=== PATIENT | male | born 1960 | race African-American/Black ===

== ENCOUNTER 2017-06-02 12:13 | Emergency (ER) | payer BC ==
[2017-06-02] MEDS ORDERED: Amoxicillin/Potassium Clav 875 MG TAB ONE (13:16)
[2017-06-02] MEDS ORDERED: Bacitracin Zinc 1 Packet ONE (13:16)
[2017-06-02] MEDS ORDERED: Lidocaine 1% PF 5 ML VIAL ONE (13:16)
[2017-06-02] MEDS ORDERED: Adacel (T-DAP) 0.5 ML VIAL ONE (13:16)
--- NOTE | 2017-06-02 13:56 | CT ---
NONCONTRAST HEAD CT: History: Patient working and had a seizure. Patient fell to the ground. Bleeding from the tip of the nose. Nasal swelling. Comparison: None. Technique: Noncontrast head CT is performed from skull base to skull vertex. FINDINGS: No parenchymal hemorrhage. No extraaxial hematoma. No midline shift. Basilar cisterns are patent. Bra in volume is age appropriate. Cortical macario white matter differentiation is preserved. Ventricles and sulci are patent and symmetric. There is adequate aeration of the mastoid air cells. Mild mucosal th ickening of the ethmoid air cells. Calvarium is intact. IMPRESSION: No intracranial post-traumatic sequellae. POS: [facility]
[2017-06-02 14:03] LABS: #Eosinphils 0.2 thou/uL (0.0-0.7); #Lymphocytes 1.8 thou/uL (1.20-3.40); #Monocytes 0.8 thou/uL (0.11-0.59); #Neutrophils 6.8 thou/uL (1.40-6.50); %Basophils 0.4 % (0.0-1.0); %Eosinophils 2.3 % (0.0-10.0); %Lymphocytes 18.4 % (21.0-51.0); %Monocytes 8.1 % (0.0-10.0); %Neutrophils 70.8 % (42.0-75.0); Hemoglobin 15.4 g/dL (14.0-18.0); Mean Corpuscular HGB CONC 33.2 g/dL (32.0-36.0); Mean Corpuscular Hemoglobin 31.2 pg (27.0-31.0); Mean Corpuscular Volume 94.1 fl (80.0-94.0); Mean Platelet Volume 6.6 fL (7.4-10.4); Platelet Count 309 thou/uL (130-400); RBC Distribution Width 11.9 % (11.5-14.5); Red Blood Cell (RBC) Count 4.95 mill/uL (4.70-6.10); White Blood Cell (WBC) Count 9.6 thou/uL (4.8-10.8)
--- NOTE | 2017-06-02 14:08 | CT ---
CERVICAL SPINE CT WITHOUT CONTRAST: HISTORY: Trauma. Posttraumatic pain. Seizure. COMPARISON: None. TECHNIQUE: Postcontrast cervical spine CT is performed in the axial plane. Reformatted images are submitted for interpretation. FINDINGS: The visualized soft tissue neck structures are unremarkable. There is effacement of the left pirifor m sinus which may be due to benign acquisition of mucosa. Direct visualization is recommended to exc lude other etiologies. Upper mediastinum and lung apices demonstrate chronic change. The central spinal canal and neural foramina are patent. Evaluation is limited by technique. Lateral masses of C1 and C2 articulate appropriately. There is appropriate articulation of the facet s. Odontoid process is intact. On the lateral projection, there is partial fusion of the C5-C6 leve l. The posterior elements are also partially fused. Findings may be due to lack of complete pigment ation. Vertebral body height is maintained. There are no fractures. IMPRESSION: 1. No cervical spine fracture. 2. Lack of complete segmentation of C5-C6. 3. Effacement of the left piriform sinus. Evaluate for possible mucosal-based pathology with noneme rgent direct visualization. POS: [facility]
[2017-06-02 14:26] LABS: ALT (SGPT) 19 U/L (8-55); AST (SGOT) 25 U/L (5-34); Albumin 4.3 g/dL (3.5-5.0); Alkaline Phosphatase 60 U/L (40-150); Anion Gap 13 mmol/L (10-20); BUN (Urea Nitrogen) 9 mg/dL (8.4-25.7); Bilirubin, Total 0.5 mg/dL (0.2-1.2); Calc. Creatinine Clearance 0 mL/min (70-130); Calcium 9.5 mg/dL (7.8-10.44); Carbon Dioxide 26 mmol/L (22-29); Chloride 102 mmol/L (98-107); Estimated GFR-MDRD Greater than 90; Globulin 3.2 g/dL (2.4-3.5); Glucose 97 mg/dL (70-105); Protein, Total 7.5 g/dL (6.0-8.3); Sodium 137 mmol/L (136-145)
[2017-06-02 15:10] LABS: Carbamazepine-Tegretol Less than 1.9 ug/mL (4.0-12.0)
== END 2017-06-02 16:30 | disposition home or self-care (01) ==
LOC: ERS 12:13
DX: G40.909 Epilepsy, unspecified, not intractable, without status epilepticus (principal); F17.210 Nicotine dependence, cigarettes, uncomplicated
CPT/HCPCS: 12011; 36415; 70450; 72125; 80053; 80156; 85025; 90471; 90715; 96360; 99406; J2001

== ENCOUNTER 2019-04-18 10:47 | Inpatient (IN) | payer BC ==
[2019-04-18] MEDS ORDERED: Iopamidol-370 76% 500 ML 1 ML ONE (10:55)
[2019-04-18 12:20] LABS: #Eosinphils 0.3 thou/uL (0.0-0.7); #Lymphocytes 2.1 thou/uL (1.20-3.40); #Monocytes 1.2 thou/uL (0.11-0.59); #Neutrophils 4.3 thou/uL (1.40-6.50); %Basophils 0.3 % (0.0-1.0); %Eosinophils 3.8 % (0.0-10.0); %Lymphocytes 26.3 % (21.0-51.0); %Monocytes 14.9 % (0.0-10.0); %Neutrophils 54.7 % (42.0-75.0); Hemoglobin 14.1 g/dL (14.0-18.0); Mean Corpuscular HGB CONC 30.9 g/dL (32.0-36.0); Mean Corpuscular Hemoglobin 28.1 pg (27.0-31.0); Mean Corpuscular Volume 90.9 fL (78.0-98.0); Mean Platelet Volume 7.1 fL (7.4-10.4); Platelet Count 277 thou/uL (130-400); RBC Distribution Width 12.5 % (11.5-14.5); Red Blood Cell (RBC) Count 5.03 mill/uL (4.70-6.10); White Blood Cell (WBC) Count 7.8 thou/uL (4.8-10.8)
--- NOTE | 2019-04-18 12:23 | ULT ---
VENOUS DOPPLER ULTRASOUND OF THE LEFT LOWER EXTREMITY: Date: 04/28/19 HISTORY: Deep venous thrombosis. Left leg edema. TECHNIQUE: Quinones scale ultrasound with color flow and spectral Doppler imaging of the deep venous system of the l eft lower extremity performed. FINDINGS: There is absence of compression and flow due to occlusive thrombus in the left femoral and proximal p opliteal veins. There is absence of compression with some flow due to nonocclusive thrombus in the le ft common femoral, distal popliteal, and one of the paired veins of the posterior tibial veins. IMPRESSION: Findings are consistent with deep venous thrombosis of the left lower extremity. Discussed over the telephone with ER physician, Dr. Dominguez, at 1146 hours. CODE CR. POS: [facility]
[2019-04-18 12:46] LABS: ALT (SGPT) 14 U/L (8-55); AST (SGOT) 18 U/L (5-34); Albumin 3.9 g/dL (3.5-5.0); Alkaline Phosphatase 91 U/L (40-110); Anion Gap 13 mmol/L (10-20); BUN (Urea Nitrogen) 8 mg/dL (8.4-25.7); Bilirubin, Total 0.5 mg/dL (0.2-1.2); Calc. Creatinine Clearance 0 mL/min (70-130); Calcium 9.6 mg/dL (7.8-10.44); Carbon Dioxide 29 mmol/L (22-29); Chloride 99 mmol/L (98-107); Estimated GFR-MDRD Greater than 90; Glucose 91 mg/dL (70-105); Potassium 4.1 mmol/L (3.5-5.1); Protein, Total 7.9 g/dL (6.0-8.3); Sodium 137 mmol/L (136-145)
--- NOTE | 2019-04-18 13:49 | CT ---
CT PULMONARY ANGIOGRAM WITH IV CONTRAST AND 3-D POSTPROCESSING: HISTORY:DVT and tachycardia FINDINGS: There is good contrast opacification of the pulmonary arterial vasculature but bilateral filling defe cts consistent with pulmonary embolism. There is straightening of the intraventricular septum indicative of right ventricular strain. The thoracic aorta is well opacified without aneurysm or dissection. No pleural or pericardial effusions are seen. No pneumothoraces, focal areas of consolidation are noted. There is a solid 3 mm peripheral lung nod ule in the posterior aspect of the right upper lobe. There are degenerative changes in the spine. Upper abdominal tomograms demonstrate a 12 mm cyst in the right lobe of the liver IMPRESSION: 1. Bilateral pulmonary embolism with right ventricular strain 2. Indeterminate 3 mm right lung nodule. A follow-up CT scan of the chest is recommended in 12 months . Discussed over the telephone with ER physician Dr. Garth Dominguez at 1:42 PM
[2019-04-18 15:16] LABS: PTT 30.7 SEC (22.9-36.1)
--- NOTE | 2019-04-18 16:10 | PDOC.HHP ---
Hospitalist HPI - History of Present Illness Right leg swelling History of Present Illness: 58 YO man with a PMH of prostate cancer (w no mets) diagnosed recently in Jan 2019, s/p resction in Feb 2019 who noted his RLL was swollen >2 weeks ago. Pt was unsure of the reason and tried to get in touch with Drs in [place] and [place] but was unable to do. He thought the swelling would do away, but recently his RLL has been so swollen and painful so he came to the ER for further evaluation. He denies immobility after his Sx. Denies CP, SOB or fever. Upon presentation to this ER, pt was diagnosed with both a DVT and PE. He's being admitted now for further evaluation. Hospitalist ROS - Review of Systems Constitutional: denies: fever, chills, sweats, weakness, malaise, other Eyes: denies: pain, vision change, conjunctivae inflammation, eyelid inflammation, redness, other ENT: denies: ear pain, ear discharge, nose pain, nose discharge, nose congestion , mouth pain, mouth swelling, throat pain, throat swelling, other Respiratory: denies: cough, dry, shortness of breath, hemoptysis, SOB with excertion, pleuritic pain, sputum, wheezing, other Cardiovascular: denies: chest pain, palpitations, orthopnea, paroxysmal noc. 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 Left wrist Sx ) - Social History Alcohol: reports: None Living Situation: Alone Activity level: independent ambulation - Exam General Appearance: NAD, awake alert Eye: PERRL, anicteric sclera ENT: normocephalic atraumatic, no oropharyngeal lesions, moist mucosa Neck: supple, symmetric, no JVD, no thyromegaly, no lymphadenopathy, no carotid bruit Heart: RRR, no murmur, no gallops, no rubs, normal peripheral pulses Respiratory: CTAB, no wheezes, no rales, no ronchi, normal chest expansion, no tachypnea, normal percussion Gastrointestinal: soft, non-tender, non-distended, normal bowel sounds, no palpable masses, no hepatomegaly, no splenomegaly, no bruit Extremities: no cyanosis, no clubbing, no edema Skin: normal turgor, no lesions, no rashes Neurological: cranial nerve grossly intact, normal sensation to touch, no weakness, no focal deficits, no new deficit Musculoskeletal: normal tone, normal strength, no muscle wasting Musculoskeletal - other findings: Swollen RLL Psychiatric: normal affect, normal behavior, A&O x 3 Hospitalist Results - Labs Result Diagrams: 04/18/19 11:52 04/18/19 11:52 Lab results: WBC 7.8 thou/uL (4.8-10.8) 04/18/19 11:52 Hgb 14.1 g/dL (14.0-18.0) 04/18/19 11:52 Hct 45.7 % (42.0-52.0) 04/18/19 11:52 MCV 90.9 fL (78.0-98.0) 04/18/19 11:52 Plt Count 277 thou/uL (130-400) 04/18/19 11:52 Neutrophils % 54.7 % (42.0-75.0) 04/18/19 11:52 Sodium 137 mmol/L (136-145) 04/18/19 11:52 Potassium 4.1 mmol/L (3.5-5.1) 04/18/19 11:52 Chloride 99 mmol/L (98-107) 04/18/19 11:52 Carbon Dioxide 29 mmol/L (22-29) 04/18/19 11:52 BUN 8 mg/dL (8.4-25.7) L 04/18/19 11:52 Creatinine 0.89 mg/dL (0.7-1.3) 04/18/19 11:52 Glucose 91 mg/dL (70-105) 04/18/19 11:52 Calcium 9.6 mg/dL (7.8-10.44) 04/18/19 11:52 Total Bilirubin 0.5 mg/dL (0.2-1.2) 04/18/19 11:52 AST 18 U/L (5-34) 04/18/19 11:52 ALT 14 U/L (8-55) 04/18/19 11:52 Alkaline Phosphatase 91 U/L (40-110) 04/18/19 11:52 Troponin I Less than 0.010 ng/mL (< 0.028) 04/18/19 11:50 B-Natriuretic Peptide Less than 10.0 pg/mL (0-100) 04/18/19 11:50 Serum Total Protein 7.9 g/dL (6.0-8.3) 04/18/19 11:52 Albumin 3.9 g/dL (3.5-5.0) 04/18/19 11:52 Hospitalist H&P A/P - Problem (1) VTE (venous thromboembolism) Code(s): I82.90 - ACUTE EMBOLISM AND THROMBOSIS OF UNSPECIFIED VEIN Status: Acute Assessment and Plan: Pt has both a DVT and PE. Will start on a heparin gtt with plans to transition to oral anticoagulant. (2) Prostate cancer Code(s): C61 - MALIGNANT NEOPLASM OF PROSTATE Status: Acute Assessment and Plan: Pt is s/p prostate Sx. he says he has no mets were found on initial diagnosis. He follows up with his urologist in May 2019. (3) Seizure Code(s): R56.9 - UNSPECIFIED CONVULSIONS Status: Acute Assessment and Plan: Pt has hx of sx. No active sz noted recently. He takes meds on prn. - Plan Plan: PPx: Heparin. CODE status: Full. Dispo: Admit as inpatient.
[2019-04-18] MEDS ORDERED: HYDROcodone/Acetaminophen 5/325 mg Tablet PO PRN (16:18)
[2019-04-18] MEDS ORDERED: Ondansetron PF 4 MG/2 ML Vial IVP PRN (16:18)
[2019-04-18] MEDS ORDERED: Acetaminophen 325 MG TAB PO PRN (16:18)
[2019-04-18] MEDS ORDERED: Heparin 25,000 units/D5W 500 ML ONE (16:37)
[2019-04-18] MEDS ORDERED: Heparin 1,000 UNITS/ML VIAL ONE (16:43)
[2019-04-18 16:46] LABS: Platelet Count 275 thou/uL (130-400)
[2019-04-18 20:25] VITALS: BMI 22.8
[2019-04-19 05:28] LABS: Anion Gap 12 mmol/L (10-20); BUN (Urea Nitrogen) 7 mg/dL (8.4-25.7); Calc. Creatinine Clearance 85 mL/min (70-130); Calcium 9.1 mg/dL (7.8-10.44); Carbon Dioxide 30 mmol/L (22-29); Chloride 100 mmol/L (98-107); Estimated GFR-MDRD Greater than 90; Glucose 103 mg/dL (70-105); Potassium 4.3 mmol/L (3.5-5.1); Sodium 138 mmol/L (136-145)
[2019-04-19 05:37] LABS: Prothrombin Time 13.4 SEC (12.0-14.7)
[2019-04-19] MEDS: Heparin 10,000 UNITS/ 10 ML VIAL SLOW IVP SCH ×2 (06:17→20:17)
[2019-04-19 06:23] LABS: Hemoglobin 13.6 g/dL (14.0-18.0); Mean Corpuscular Hemoglobin 29.1 pg (27.0-31.0); Mean Corpuscular Volume 90.9 fL (78.0-98.0); Mean Platelet Volume 7.5 fL (7.4-10.4); Platelet Count 285 thou/uL (130-400); RBC Distribution Width 12.5 % (11.5-14.5); Red Blood Cell (RBC) Count 4.67 mill/uL (4.70-6.10); White Blood Cell (WBC) Count 7.8 thou/uL (4.8-10.8)
[2019-04-19 06:26] LABS: Eosinophils 5 % (0-10); Lymphocytes 45 % (21-51); MDiff Complete? YES; Monocytes 11 % (0-10); Neutrophil 38 % (42-75)
--- NOTE | 2019-04-19 11:15 | PRG ---
DATE OF SERVICE: 04/19/2019 IMPRESSION: 1. Acute deep venous thrombosis of the left lower extremity. 2. Acute bilateral PE secondary to #1. 3. Prostate cancer, status post surgery. 4. History of seizures. 5. Indeterminate 3 mm right lung nodule for the followup on outpatient basis. SUBJECTIVE: The patient is seen and examined at the bedside. The patient does not have much complaints to offer. He is not short of breath. He does not have any pain. OBJECTIVE: VITAL SIGNS: Blood pressure is 117/78, pulse is 87, temperature is 98.3, respirations 20, and O2 saturation is 100% on room air. HEENT: His head is atraumatic and normocephalic. Eyes are PERRLA. Sclerae are nonicteric. Oral mucosa is moist. NECK: Supple. LUNGS: Clear. HEART: S1, S2 normal. No S3. No S4. No any murmur. ABDOMEN: Soft, nontender, nondistended. EXTREMITIES: No clubbing or cyanosis. There is 1+ peripheral edema on the left lower extremity. LABORATORY DATA: Labs showed a white count of 7.8, hemoglobin of 13.6, hematocrit 42.4, platelet count is 285,000. INR of 1.0, PTT 56.4, PT of 13.4. Sodium 138, potassium 4.3, chloride 100, CO2 of 30, BUN 7, creatinine 0.88, glucose 103, calcium 9.1. DISCUSSION: The patient is going to continue on his heparin. We will keep checking his PT, INR, and PTT, and make some adjustments. This is done to stabilize the clot since he had some cardiac straining and after additional 48 hours, I am going to switch him to p.o. apixaban and send him home. Job ID: [id number]
[2019-04-19] MEDS: Heparin 25,000 units/D5W 500 ML IVPB SCH (13:05)
[2019-04-20] MEDS: Heparin 25,000 units/D5W 500 ML IVPB SCH ×2 (05:35→22:57)
--- NOTE | 2019-04-20 09:02 | PRG ---
DATE OF SERVICE: 04/20/2019 SUBJECTIVE: The patient is seen and examined at the bedside. He does not have much complaints to offer. He feels good. He is not short of breath. He does not have chest pain. His appetite is fair, and bowel movements are daily. OBJECTIVE: VITAL SIGNS: Blood pressure is 116/76, pulse is 83, respiratory rate is 18, O2 saturation is 100% on room air, and temperature is 98.2. HEENT: His head is atraumatic and normocephalic. Eyes are PERRLA. Sclerae are nonicteric. Oral mucosa is moist. NECK: Supple. LUNGS: Clear. HEART: S1 and S2 are normal. No S3. No S4. No any murmur. ABDOMEN: Soft, nontender, and nondistended. EXTREMITIES: No clubbing, cyanosis, or edema. NEUROLOGIC: He is alert and oriented x4. There are no any motor or sensory deficits. LABORATORY DATA: Showed APTT of 110, INR 1.0, this is from the time of admission. The rest of labs, which are H and H to be done tomorrow. IMPRESSION: 1. Acute deep venous thrombosis with acute bilateral pulmonary embolism. 2. History of prostate cancer, status post surgery. 3. History of seizures. 4. Indeterminate 3 mm right lung nodule, for the followup on outpatient basis. PLAN: We are going to continue his IV heparin for additional 24 hours to complete 72 hours of IV heparin to stabilize the clot since there was right ventricular straining on the CT angiogram. Then, we will switch him to apixaban and send him home most likely tomorrow. Job ID: [id number]
[2019-04-20 15:25] LABS: Prothrombin Time 12.7 SEC (12.0-14.7)
[2019-04-20 16:53] LABS: Hemoglobin 13.9 g/dL (14.0-18.0); Platelet Count 330 thou/uL (130-400)
[2019-04-21] MEDS ORDERED: Lorazepam 1 MG TAB PO PRN (09:04)
[2019-04-21] MEDS ORDERED: Oxybutynin 5 MG TAB PO PRN (09:04)
[2019-04-21] MEDS ORDERED: Apixaban 5 MG TAB PO SCH (13:45)
--- NOTE | 2019-04-21 14:21 | PDOC.HOSPP ---
- Subjective Encounter Date: 04/21/19 Encounter Time: 10:30 Subjective: pt up in bed complains of pain to his left leg - Objective Vital Signs & Weight: Vital Signs (12 hours) Temp Pulse Resp BP Pulse Ox 04/21/19 08:00 99 04/21/19 07:54 98.2 F 86 18 120/77 99 Weight Weight 145 lb 8.081 oz I&O: 04/20/19 04/21/19 04/22/19 06:59 06:59 06:59 Intake Total 290 Balance 290 Result Diagrams: 04/20/19 16:46 04/19/19 04:56 Hospitalist ROS - Review of Systems Cardiovascular: denies: chest pain, palpitations, orthopnea, paroxysmal noc. dyspnea, edema, light headedness, other Gastrointestinal: denies: nausea, vomiting, abdominal pain, diarrhea, constipation, melena, hematochezia, other Musculoskeletal: reports: leg pain - Medication Medications: Active Medications Generic Name Dose Route Start Last Admin Trade Name Freq PRN Reason Stop Dose Admin Apixaban 10 mg 04/21/19 13:45 04/21/19 13:54 Eliquis PO 04/21/19 14:45 10 mg NOW CADEN Administration Heparin Sodium (Porcine) 0 units 04/18/19 16:30 04/19/19 20:17 Heparin 1,000 Units/Ml (10 Ml) SLOW IVP 2,600 unit ASDIR CADEN Administration Protocol Heparin Sodium/Dextrose 500 mls @ 0 mls/hr 04/18/19 16:30 04/20/19 22:57 Heparin 25,000 Units/D5w 500 Ml IVPB 500 mls INF CADEN Administration Protocol Per Protocol - Exam Neck: negative: supple, symmetric, no JVD, no thyromegaly, no lymphadenopathy, no carotid bruit, JVD Heart: negative: RRR, no murmur, no gallops, no rubs, normal peripheral pulses, irregular, diminshed peripheral pulses, murmur present, II/IV, III/IV Respiratory: negative: CTAB, no wheezes, no rales, no ronchi, normal chest expansion, no tachypnea, normal percussion, rales, rhonchi, tachypneic, wheezes Extremities: 1+ LE edema Hosp A/P (1) Pulmonary emboli Code(s): I26.99 - OTHER PULMONARY EMBOLISM WITHOUT ACUTE COR PULMONALE Status : Acute (2) Prostate cancer Code(s): C61 - MALIGNANT NEOPLASM OF PROSTATE Status: Acute (3) VTE (venous thromboembolism) Code(s): I82.90 - ACUTE EMBOLISM AND THROMBOSIS OF UNSPECIFIED VEIN Status: Acute - Plan will start pt on eliquis, he will need echo since it mentioned heart strain on cta. trops negative. pt had prostatectomy in February.
[2019-04-21] MEDS: Apixaban 5 MG TAB PO SCH (20:15)
[2019-04-22 08:36] VITALS: BP 121/78; TEMP 98.1
[2019-04-22] MEDS: Apixaban 5 MG TAB PO SCH (08:39)
--- NOTE | 2019-04-22 18:51 | DIS ---
DATE OF ADMISSION: 04/18/2019 DATE OF DISCHARGE: 04/22/2019 DISCHARGE DIAGNOSES: 1. Pulmonary embolism and deep vein thrombosis with RV straining. 2. History of prostate cancer. 3. 3 mm right lung nodule. HOSPITAL COURSE: The patient is a 58-year-old male who initially presented to the hospital on 04/18, with complaints of right leg swelling. At this time, he underwent Dopplers which were positive. He also underwent a CTA which indicated bilateral pulmonary embolism with RV strain. He also has an indeterminate 3 mm right lung nodule. The patient at this time was initially put on heparin drip and admitted to the hospital. The patient's symptoms continued to improve. His troponins were negative. He had an echocardiogram which indicated an EF of 55% to 60%, but the right ventricular systolic pressure was not elevated. Right tricuspid regurgitation. Left ventricular size was normal. The patient was transitioned to Eliquis. He has been instructed to take Eliquis 10 mg twice a day for 7 days followed by 5 mg twice a day. He also was advised to follow up with his primary care doctor for continuing the medication refills and the course of his Eliquis. He also has an appointment with the surgeon next month and I have asked him to tell the surgeon that he currently had a DVT and a PE. His surgery was in February. The patient again has been asked to follow up with his primary for repeat CAT scan and follow up with a nodule and also for his medication refills. HOME MEDICATIONS: Will be as of the following. 1. Eliquis 10 mg twice a day for 6 days, he will receive one day here followed by 5 mg twice a day. 2. Ditropan 5 mg daily. 3. Lorazepam one p.o. daily. 4. Hydrocodone 1 to 2 tablets q.4 hours p.r.n. PHYSICAL EXAMINATION: VITAL SIGNS: Temperature 98.1, pulse 100, respirations 18, 96% on room air, blood pressure 121/78. GENERAL: He is awake, alert, and oriented x3. Does not appear in any distress. CV: S1 and S2 present. No murmurs, rubs, or gallops. Again, the patient will be discharged home. He will follow up with his primary and also with his surgeon. Job ID: [id number]
== END 2019-04-22 12:58 | disposition home or self-care (01) | DRG 299 ==
LOC: ERS 10:47 → ERHOLD 15:12 → T4-B 18:23
PROVIDERS: ADMIT Hospitalist; ATTEND Hospitalist
DX: I82.4Z1 Acute embolism and thrombosis of unspecified deep veins of right distal lower extremity (principal); I26.99 Other pulmonary embolism without acute cor pulmonale; G40.909 Epilepsy, unspecified, not intractable, without status epilepticus; F17.210 Nicotine dependence, cigarettes, uncomplicated; Z85.46 Personal history of malignant neoplasm of prostate; Z86.010 Personal history of colon polyps
CPT/HCPCS: 36415; 71275; 80048; 80053; 83880; 84484; 85014; 85018; 85025; 85049; 85610; 85730; 93005; 93306; J1644; Q9967